=== PATIENT | female | born 1990 | race Two or more races ===

== ENCOUNTER 2019-12-20 16:27 | Emergency (ER) | payer SELFPAY ==
[~2019-12-20] VITALS: Ht 165.1 cm; Wt 101.2 kg
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
--- NOTE | 2019-12-20 16:39 | NUR ---
SEEN AND EXAMINED BY ITZEL PEREYRA NP.
--- NOTE | 2019-12-20 16:44 | NUR ---
ER PHLEB AT BEDSIDE FOR BLOOD DRAW.
[2019-12-20] MEDS ORDERED: ACETAMINOPHEN ES 500 MG TABLET PO ONE (17:00)
[2019-12-20] MEDS ORDERED: ACETAMINOPHEN ES 500 MG TABLET ONE (17:10)
[2019-12-20] MEDS ORDERED: IBUPROFEN 400 MG TABLET ONE (17:34)
[2019-12-20] MEDS ORDERED: IBUPROFEN 400 MG TABLET PO ONE (18:00)
--- NOTE | 2019-12-20 19:55 | NUR ---
Patient discharged to home in stable condition. Written and verbal after care instructions given. Patient verbalizes understanding of instruction. Pt ambulatory with a steady gait
[2019-12-20 20:20] VITALS: BP 135/76
== END 2019-12-20 17:57 | disposition home or self-care (01) ==
LOC: ER 16:30
DX: S70.02XA Contusion of left hip, initial encounter (principal); S80.02XA Contusion of left knee, initial encounter; S90.02XA Contusion of left ankle, initial encounter; V09.9XXA Pedestrian injured in unspecified transport accident, initial encounter; Y93.89 Activity, other specified; Y92.488 Other paved roadways as the place of occurrence of the external cause; Y99.8 Other external cause status
CPT/HCPCS: 36415; 73502; 73564-TC; 73610-TC; 84702-TC